=== PATIENT | male | born 1985 | race Caucasian/White ===

== ENCOUNTER 2017-06-08 16:09 | Emergency (ER) | payer OTHER ==
[2017-06-08 16:39] VITALS: BP 148/87
--- NOTE | 2017-06-08 16:42 | UC ---
Laceration HPI - HPI Summary HPI Summary: 31 y/o male presents to the urgent care c/o left leg laceration w/ a machete about 1 hrs ago while cutting some bushes today. Pt states he applied pressure and bleeding stopped. Pain is 1/10. He is not UTD w/ his Tetanus vaccine. Pt denies numbness and tingling sensation over the left lower leg, calf pain, SOB, chest pain, abdominal pain, N/V/D. - History Of Current Complaint Chief Complaint: UCLowerExtremity Stated Complaint: ANKLE LAC Time Seen by Provider: 06/08/17 16:40 Hx Obtained From: Patient Laceration Location: Knee - left lower leg ventral side laceration Mechanism Of Injury: Sharp Trauma Onset/Duration: Sudden Onset, Lasting Hours - 1 hr Severity: Mild Pain Intensity: 1 Pain Scale Used: 0-10 Numeric Aggravating Factors: Movement - Allergies/Home Medications Allergies/Adverse Reactions: Allergies Allergy/AdvReac Type Severity Reaction Status Date / Time No Known Allergies Allergy Verified 06/08/17 16:39 PMH/Surg Hx/FS Hx/Imm Hx Previously Healthy: Yes - Pt denies PMHX - Surgical History Surgical History: Yes Surgery Procedure, Year, and Place: achilles repair in 2014 - Family History Known Family History: Positive: None - Pt denies FMHX - Social History Occupation: Employed Full-time Lives: With Family Alcohol Use: Weekly Substance Use Type: None Smoking Status (MU): Never Smoked Tobacco - Immunization History Most Recent Tetanus Shot: unknown Review of Systems Constitutional: Negative Skin: Other - laceration on the ventral side of the left lower leg w/ a machete Eyes: Negative ENT: Negative Respiratory: Negative Cardiovascular: Negative Gastrointestinal: Negative Genitourinary: Negative Motor: Negative Neurovascular: Negative Musculoskeletal: Negative Neurological: Negative Psychological: Negative Is Patient Immunocompromised?: No All Other Systems Reviewed And Are Negative: Yes Physical Exam - Summary Physical Exam Summary: Vital Signs Reviewed: Yes General: well developed, well nourished male sitting in the examining table w/ o any apparent distress Eye Exam: Normal Eyes: Positive: Conjunctiva Clear - PERRLA, EOMI, fundi grossly normal ENT: Positive: Normal ENT inspection, Hearing grossly normal, Pharynx normal, TMs normal Neck: Positive: Supple, Nontender, No Lymphadenopathy Respiratory: Positive: Chest non-tender, Lungs clear, Normal breath sounds, No respiratory distress Cardiovascular: Positive: RRR, No Murmur, Pulses Normal, Brisk Capillary Refill Abdomen Description: Positive: Nontender, No Organomegaly, Soft. Negative: CVA Tenderness (R), CVA Tenderness (L) Bowel Sounds: Positive: Present Musculoskeletal: Positive: Strength Intact, ROM Intact, No Edema Neurological: Positive: Alert, Muscle Tone Normal Psychological Exam: Normal Skin: Positive: ventral side of left lower leg w/ superficial linear laceration about 2.5cm in size, bleeding, no foreign body observed. mild tenderness to palpation, no ecchymosis. FROM of left lower extremity, sensation intact, capillary refill brisk, and pulses WNL. Triage Information Reviewed: Yes Vital Signs: Initial Vital Signs Temp 98.3 F 06/08/17 16:38 Pulse 57 06/08/17 16:38 Resp 14 06/08/17 16:38 BP 148/87 06/08/17 16:38 Pulse Ox 100 06/08/17 16:38 Laceration Repair - Laceration Repair 1 Description: Linear Laceration Size After Repair: Length (cm) - 2.5cm Modified For Repair: No Type Injection: Local Anesthesia Used: 2.0% Lido - 3ml Cleansing Completed Via Routine Prep: Yes Irrigation With Pressure Irrigation Device: Yes Closure Material: Sutures - 5 sutures Closure Method: Single Layer Suture Of: Skin, SQ Suture Type: Nylon Laceration Course/Dx - Course/Dx Course Of Treatment: 31 y/o male presents to the urgent care c/o left leg laceration w/ a machete about 1 hrs ago while cutting some bushes today. Pt states he applied pressure and bleeding stopped. Pain is 1/10. He is not UTD w/ his Tetanus vaccine. Pt denies numbness and tingling sensation over the left lower leg, calf pain, SOB, chest pain, abdominal pain, N/V/D. Hx obtained. Pt w / ventral side of left lower leg w/ superficial linear laceration about 2.5cm in size, bleeding, no foreign body observed. mild tenderness to palpation on examiantion. LACERATION PROCEDURE NOTE: . Copious irrigation was done with saline by the nurse and the wound explored. There was no FB or deep structure injury noted. FROM of left leg. procedure was explained and consent obtained, Timeout performed. The wound was anesthetized with3 mL of 2% lido with good anesthesia. Sterile drape and prep were don. There were 5 sutures with 5.0 nylon type of suture. The length of the wound after closure was 2.5cm. No debridement done. Wound was covered bacitracin with sterile non adherent dressing. The Pt tolerated the procedure well without adverse effects. Neurovascular intact and FROM. Tdap ordered and applied by nurse. Pt advised to f/u suture removal in 10-14 days and if any signs of infection develop to immediately return to the urgent care of PCP for further management and treatment.Pt's BP is elevated today advised to decrease salt in diet, monitor BP and f/u with PCP for further management. Pt understood and agreed and left the clinic ambulating A&Ox3. - Differential Dx - Laceration/Wound Differental Diagnoses: Abrasion, Laceration, Puncture Wound, Tendon Laceration Provider Diagnoses: 1- Left lower leg laceration repair. 2- Elevated BP w/o Hx of HTN Discharge - Sign-Out/Discharge Documenting (check all that apply): Discharge - Discharge Plan Condition: Stable Disposition: HOME Prescriptions: Bacitracin OINTMENT* 1 applic TOPICAL BID #1 tube Patient Education Materials: Care For Your Stitches (ED), Laceration (ED), Low- Sodium Diet (ED) Referrals: [facility] [Outside] - If Needed Additional Instructions: 1-Please apply topical antibiotic over the wound. Keep wound clean and dry 2- F/u suture removal in 10-14 days days w/ your PCP or here at the urgent care. 3-Take Ibuprofen or Tylenol PO q6-8hrs prn for pain or swelling. 4- If you develop fever or redness around your left lower leg despite the antibiotic please go to the ER immediately or return to the Urgent care. 5-Your BP is elevated today. please decrease salt in your diet, monitor BP and if it continues to be elevated please f/u with your PCP for further management - Billing Disposition and Condition Condition: STABLE Disposition: HOME
[2017-06-08] MEDS ORDERED: Tetan/Diph/Pertus SYR(Tdap)* 0.5 ML SYR(BOOSTRIX) use SYR IM ONE (16:48)
[2017-06-08] MEDS ORDERED: Lidocaine 1% MPF* 2 ML VIAL INJ ONE (16:51)
== END 2017-06-08 17:42 | disposition home or self-care (01) ==
LOC: UCEAST 16:09
DX: S81.812A Laceration without foreign body, left lower leg, initial encounter (principal); W27.8XXA Contact with other nonpowered hand tool, initial encounter; Y93.H2 Activity, gardening and landscaping; Y92.9 Unspecified place or not applicable; Z23 Encounter for immunization
CPT/HCPCS: 12001; 90471; 90715; 99202; G0463